=== PATIENT | female | born 1935 ===

== ENCOUNTER 2017-04-09 10:09 | Outpatient (CLI) | payer OTHER ==
[~2017-04-09] VITALS: Ht 152.4 cm; Wt 90.7 kg
[~2017-04-09 10:09] MED LIST: ALENDRONATE SOD70 MG; ATENOLOL50 MG; DOXAZOSIN MESYLA2 MG; FUROSEMIDE20 MG; GABAPENTIN300 MG; GLUCOPHAGE XR500 MG; HYZAAR 100-251 UDTAB; NAMENDA10 MG; NIFEDICAL30 MG/BOTT; OMEPRAZOLE20 MG; SIMVASTATIN40 MG; TIROSINT88 MCG
== END 2017-04-09 10:20 | disposition home or self-care (01) ==
LOC: OFIC 805 10:09
DX: R05 Cough (principal); J31.0 Chronic rhinitis; H90.3 Sensorineural hearing loss, bilateral; J32.8 Other chronic sinusitis